=== PATIENT | male | born 1960 | race Caucasian/White ===

== ENCOUNTER 2019-12-11 10:58 | Emergency (ER) | payer OTHER ==
[2019-12-11] MEDS ORDERED: Lidocaine 1% PF 5 ML VIAL ONE (11:17)
[2019-12-11] MEDS ORDERED: Adacel (T-DAP) 0.5 ML SYRINGE ONE (11:27)
== END 2019-12-11 11:48 | disposition home or self-care (01) ==
LOC: BURERS 10:58
DX: S61.211A Laceration without foreign body of left index finger without damage to nail, initial encounter (principal); E11.9 Type 2 diabetes mellitus without complications; F17.210 Nicotine dependence, cigarettes, uncomplicated; Z79.84 Long term (current) use of oral hypoglycemic drugs; Z23 Encounter for immunization; W26.0XXA Contact with knife, initial encounter
CPT/HCPCS: 12002; 90471; 90715; J2001